=== PATIENT | female | born 1950 | race Caucasian/White ===

== ENCOUNTER → 2017-02-16 | Outpatient (CLI) | payer OTHER ==
[~2017-02-16] MED LIST: CLON0.5T3 PO; CLON1TAB3 PO; FLUO10CA48 PO; INSDGI SC; INSU100I SQ; LOSA100T33 PO; METF-384 PO; OXYC-57 PO; RXC5 PO
[2017-02-16 16:47] LABS: BASO % 0.6 %; BASO ABS # 0.05 K/uL (0-0.2); COMPLETE YES; EOS % 7.1 %; HEMATOCRIT 41.9 % (37-47); IG% 0.2 %; LYMPH % 34.3 %; LYMPH ABS # 3.03 K/uL (1.2-3.4); MEAN CELL VOLUME 94.6 fL (80-100); MEAN CORPUSCULAR HGB CONC 34.8 g/dl (32-36); MEAN PLATELET VOLUME 10.8 fL (7.4-10.4); NEUT % 50.8 %; PLATELET COUNT 223 K/uL (130-400); RED BLOOD COUNT 4.43 M/uL (4.2-5.4); WHITE BLOOD COUNT 8.83 K/uL (4.8-10.8)
[2017-02-16 16:52] LABS: URINE APPEARANCE CLEAR (CLEAR); URINE BILIRUBIN NEG (NEG); URINE COLOR YELLOW; URINE NITRITE NEG (NEG); URINE SPECIFIC GRAVITY 1.021 (1.000-1.030); UROBILINOGEN NEG (NEG)
[2017-02-16 16:57] LABS: MANUAL MICROSCOPIC REQUIRED? NO; REVIEW REQ? NO
--- NOTE | 2017-02-16 17:06 | DIAGNOSTIC IMAGING REPORT ---
CHEST 2 VIEWS ROUTINE CLINICAL HISTORY: LAB FIRST, CPL AFTER preoperative evaluation COMPARISON STUDY: No previous studies for comparison. FINDINGS: The bones soft tissues and hemidiaphragms are normal. The cardiomediastinal silhouette is normal. The lungs are clear. The pulmonary vasculature is normal. IMPRESSION: Negative chest. Electronically signed by: Justin Hopper M.D. 02/16/2017 5:05 PM Dictated Date/Time: 02/16/2017 5:05 PM
[2017-02-16 17:18] LABS: BLOOD UREA NITROGEN 11 mg/dl (7-18); BUN/CREATININE RATIO 12.4 (10-20); CALCIUM 9.3 mg/dl (8.5-10.1); CARBON DIOXIDE 29 mmol/L (21-32); CHLORIDE 105 mmol/L (98-107); CREATININE 0.89 mg/dl (0.60-1.20); GLUCOSE 163 mg/dl (70-99); SODIUM 143 mmol/L (136-145)
== END | disposition home or self-care (01) ==
LOC: C.CPL 16:08
PROVIDERS: ATTEND Orthopaedic Surgery Orthopaedic Surgery of the Spine
DX: M48.06 Spinal stenosis, lumbar region (principal); I49.3 Ventricular premature depolarization

== ENCOUNTER 2017-03-05 07:16 | Inpatient (IN) | payer OTHER ==
[2017-02-19 11:08] VITALS: BMI 38.0
[2017-03-05] VITALS (7 sets, daily range): BP systolic 80–126; BP diastolic 47–74; PULSE 80–104; TEMP 36.4–36.9; O2SAT 94–99; Ht 154.9 cm; Wt 90.9 kg
[~2017-03-05] VITALS: Ht 154.9 cm; Wt 90.9 kg
[~2017-03-05 07:16] MED LIST changes: +ATROPINE SULFATE 0.1 MG/ML 5ML SYR IV PRN; +BACITRACIN 50000 UNIT VIAL ONE; +BUPIVACAINE/EPINEPHRINE 0.25% 1:200,000 30 ML VIAL ONE; +CEFAZOLIN 2000 MG/60 ML D5W IV SCH; -CLON0.5T3 PO; +EpHEDrine SULFATE INJ 50 MG/ML AMP IV PRN; +FENTANYL CITRATE INJ 50 MCG/1 ML 2 ML VIAL IV PRN; +FENTANYL CITRATE INJ 50 MCG/1 ML 2 ML VIAL ONE; +HYDROmorphone INJ 1 MG/ML SYR IV PRN; +HYDROmorphone INJ 2 MG/ML SYR/VIAL ONE; +INSULIN ASPART 100 UNITS/ML 3 ML PEN SC SCH; +KETAMINE HCL INJ 50 MG/ML 10 ML VIAL ONE; +LACTATED RINGER'S 1000ML 1,000 ML IV SCH; +MIDAZOLAM HCL 1 MG/ML 2ML VIAL ONE; +ONDANSETRON INJ 2 MG/ML 2 ML VIAL IV PRN; -RXC5 PO; +SODIUM CHLORIDE 0.9% PF 50 ML VIAL ONE
--- NOTE | 2017-03-05 07:23 | History & Physical Bridge Note ---
H&P Re-Evaluation Bridge Note: I have examined the patient, reviewed the History & Physical and in the interval since the performance of the History & Physical I have noted the following changes of clinical significance: No changes noted
--- NOTE | 2017-03-05 07:24 | History and Physical ---
History & Physical Date Mar 05, 2017. Chief Complaint back and leg pain History of Present Illness The patient is a 66 year old female with complaints of Additional History Hepatic Disease: No Endocrine Disorder: No Kidney Disease: No Hypertension: No Heart Disease: No Bleeding Tendencies: No Infectious Diseases: No Allergies Coded Allergies: No Known Allergies (Unverified , 02/19/17) Home Medications Scheduled Fluoxetine (Prozac), 10 MG PO QAM Hctz/Losartan (Hyzaar 12.5MG/100MG), 1 TAB PO QAM Insulin Glargine (Lantus), 32 UNITS SC QAM Insulin Lispro (Human) (Humalog), 20 UNITS SQ AC Metformin Hcl (Glucophage), 1,000 MG PO BID Scheduled PRN Clonazepam (Klonopin), 0.5 TAB PO DAILY PRN for Anxiety Oxycodone/Acetaminophen 5MG/325MG (Percocet 5MG/325MG), 1 TABLET PO BID PRN for Pain Physical Examination Skin: warm/dry, no rash Eyes: normal inspection, EOMI, sclerae normal ENT: normal ENT inspection, pharynx normal Head: normocephalic, atraumatic Neck: supple, no adenopathy, trachea midline Respiratory/Chest: lungs clear, normal breath sounds, no respiratory distress Cardiovascular: regular rate, rhythm, no edema, no murmur Abdomen / GI: normal bowel sounds, non tender Back: normal inspection Extremities: normal inspection, normal range of motion Neurologic/Psych: no motor/sensory deficits, alert, normal reflexes, oriented x 3 Diagnosis lumbar stenosis Plan of Treatment decompression fusion L2-S1
[2017-03-05] MEDS ORDERED: ONDANSETRON INJ 2 MG/ML 2 ML VIAL ONE (08:47)
[2017-03-05] MEDS ORDERED: ROCURONIUM BROMIDE 10 MG/ML 5 ML VIAL ONE ×2 (08:47→10:32)
[2017-03-05] MEDS ORDERED: DEXAMETHASONE SOD INJ 4 MG/ML VIAL ONE (08:47)
[2017-03-05] MEDS ORDERED: EpHEDrine SULFATE 50MG/5ML SYR ONE (08:47)
[2017-03-05] MEDS ORDERED: LIDOCAINE HCL 2% 2 ML VIAL (20MG/ML) ONE (08:47)
[2017-03-05] MEDS ORDERED: PROPOFOL IV EMULSION 10 MG/ML 20 ML VIAL IV ONE (08:47)
[2017-03-05] MEDS ORDERED: NEOSTIGMINE METHYLSULFATE 5 MG/5 ML SYR ONE (08:47)
[2017-03-05] MEDS ORDERED: GLYCOPYRROLATE INJ 0.2 MG/ML VIAL ONE (08:47)
[2017-03-05] MEDS ORDERED: ACETAMINOPHEN 1000 MG/100 ML IV IV ONE (09:14)
[2017-03-05] MEDS ORDERED: ALBUMIN HUMAN 5% 12.5 GM/250 ML VIAL IV ONE (09:58)
[2017-03-05] MEDS ORDERED: LARYING-O-JET KIT (LTA) ONE ×2 (10:31)
[2017-03-05] MEDS ORDERED: FLOSEAL HEMOSTATIC MATRIX 10ML TOP ONE (11:26)
[2017-03-05] MEDS ORDERED: SODIUM CHLORIDE 0.9% 1000ML 1,000 ML IV SCH (11:34)
--- NOTE | 2017-03-05 11:34 | [facility] Post Operative Brief Note ---
Immediate Operative Summary Operative Date Mar 05, 2017. Pre-Operative Diagnosis Lumbar Stenosis Post-Operative Diagnosis Lumbar Stenosis Procedure(s) Performed L2-S1 Lumbar Laminectomy, Decompression; Pedicle Screw Fixation; Placement of Interbody Device L4-5,L5-S1; L2-S1 Posterolateral Fusion; Applicaton of Allograft; Bone Morphogentic Protein; Iliac [place] Fixation Surgeon Dr. Jt Unger Alarm Adjuster Surgeon(s) Noreen Raymond PA-C Estimated Blood Loss 800 cc Findings stenosis Specimens none per surgeon
[2017-03-05] MEDS ORDERED: SOD PHOSPHATE/SOD BIPHOSPHATE ENEMA 132 ML BTL PR PRN (11:45)
[2017-03-05] MEDS ORDERED: hydrOXYzine HCL 25 MG TAB PO PRN (11:45)
[2017-03-05] MEDS ORDERED: NALOXONE HCL 0.4 MG/1 ML VIAL/CARP IV PRN ×2 (11:45)
[2017-03-05] MEDS ORDERED: ALUMINUM/MAGNESIUM SUSP 30 ML UDC PO PRN (11:45)
[2017-03-05] MEDS ORDERED: ONDANSETRON INJ 2 MG/ML 2 ML VIAL IV PRN (11:45)
[2017-03-05] MEDS ORDERED: BISACODYL 10 MG SUPP PR PRN (11:45)
[2017-03-05] MEDS ORDERED: ACETAMINOPHEN IV 100 ML IV PRN (11:45)
[2017-03-05] MEDS ORDERED: MAGNESIUM HYDROXIDE SUSP 30 ML UDC PO PRN (11:45)
[2017-03-05] MEDS ORDERED: DO NOT ADMINISTER FLU VACCINE PRN ×3 (11:45)
[2017-03-05] MEDS ORDERED: DO NOT ADMINISTER PNEUMOCOCCAL VACCINE PRN ×2 (11:45)
[2017-03-05] MEDS ORDERED: PROMETHAZINE HCL INJ 12.5 MG in SODIUM CHLORIDE 0.9% 50ML 50 ML IV PRN (11:45)
[2017-03-05] MEDS ORDERED: FAMOTIDINE 20 MG TAB PO PRN (11:45)
[2017-03-05] MEDS ORDERED: METOCLOPRAMIDE HCL INJ 5 MG/ML 2 ML VIAL IV PRN (11:45)
[2017-03-05] MEDS ORDERED: CLONAZEPAM 1 MG TAB PO PRN (11:45)
[2017-03-05] MEDS ORDERED: LORAZEPAM INJ 0.5 MG in SYRINGE 0 ML IV PRN (11:45)
[2017-03-05] MEDS ORDERED: HYDROmorphone HCL 0.5MG/ML 50 ML CASSETTE ONE (11:48)
--- NOTE | 2017-03-05 11:53 | DIAGNOSTIC IMAGING REPORT ---
LUMBAR SPINE, INTRAOPERATIVE FLUOROSCOPY HISTORY: L2-S1 posterior decompression and fusion. FLUOROSCOPY TIME: 25 seconds. FINDINGS: Intraoperative fluoroscopy was provided for the lumbar spine. 5 fluoroscopic spot images were obtained. Posterior decompression and fusion from L2 through S1 with pedicle screws and rods. The hardware appears intact. There are bilateral SI bolts. IMPRESSION: Fluoroscopy provided for a L2-S1 posterior decompression and fusion. Electronically signed by: Mani Worthy M.D. 03/05/2017 11:52 AM Dictated Date/Time: 03/05/2017 11:51 AM
[2017-03-05] MEDS ORDERED: PHARMACY GLYCEMIC MGMT CONSULT PRN (12:03)
[2017-03-05] MEDS ORDERED: NURSING VERBAL MED ORDER ONE ×2 (12:08→12:38)
[2017-03-05] MEDS ORDERED: NovoLIN-R INSULIN PER UNIT CHARGE ONE ×3 (12:08→13:15)
--- NOTE | 2017-03-05 13:58 | Anesthesiology Progress Note ---
Anesthesia Post Op Note Date & Time Mar 05, 2017 at 13:58 Vital Signs Pain Intensity: 4 Vital Signs Past 12 Hours Date Time Temp Pulse Resp B/P (MAP) Pulse Ox O2 Delivery O2 Flow Rate FiO2 03/05/17 13:40 36.3 90 15 106/51 100 Nasal Cannula 4 03/05/17 13:30 75 15 123/58 100 Nasal Cannula 4 03/05/17 13:20 70 16 107/51 97 Nasal Cannula 4 03/05/17 13:10 72 16 112/63 99 Nasal Cannula 4 03/05/17 13:00 78 14 109/49 99 Nasal Cannula 4 03/05/17 12:50 75 14 120/55 99 Nasal Cannula 4 03/05/17 12:40 74 14 118/52 98 Nasal Cannula 4 03/05/17 12:30 70 14 123/43 99 Nasal Cannula 4 03/05/17 12:20 70 14 115/47 98 Nasal Cannula 4 03/05/17 12:10 70 14 96/47 100 Nasal Cannula 4 03/05/17 12:00 65 14 100/45 100 Oxymask 10 03/05/17 11:53 72 14 122/59 99 Oxymask 10 03/05/17 11:44 36.8 72 14 117/60 99 Oxymask 10 Manual 03/05/17 07:42 36.5 92 20 126/69 96 Room Air Notes Mental Status: alert / awake / arousable, participated in evaluation Pt Amnestic to Procedure: Yes Nausea / Vomiting: adequately controlled Pain: adequately controlled Airway Patency, RR, SpO2: stable & adequate BP & HR: stable & adequate Hydration State: stable & adequate Anesthetic Complications: no major complications apparent
[2017-03-05] MEDS: HYDROmorphone HCL 0.5MG/ML 50 ML CASSETTE IV PRN ×3 (14:14→23:03)
[2017-03-05] MEDS: SODIUM CHLORIDE 0.9% 1000ML 1,000 ML IV SCH ×3 (15:20→22:32)
[2017-03-05] MEDS ORDERED: GLUCOSE 10 TABS/TUBE PO PRN (16:00)
[2017-03-05] MEDS ORDERED: GLUCOSE 40% GEL 15 GM TUBE PO PRN (16:00)
[2017-03-05] MEDS ORDERED: DEXTROSE 50% 50 ML SYR IV PRN (16:00)
[2017-03-05] MEDS ORDERED: GLUCAGON FOR INJ 1 MG VIAL SQ PRN (16:00)
[2017-03-05] MEDS: CEFAZOLIN IV 2,000 MG in DEXTROSE 5% 50ML 50 ML IV SCH (16:28)
[2017-03-05] MEDS: DEXAMETHASONE INJ 6 MG in SYRINGE 0 ML IV SCH (16:29)
[2017-03-05] MEDS: INSULIN GLARGINE SOLOSTAR 100 UNITS/ML 3 ML PEN SC SCH (17:06)
--- NOTE | 2017-03-05 17:29 | OPERATIVE REPORT ---
DATE OF OPERATION: 03/05/2017 PREOPERATIVE DIAGNOSIS: Spinal stenosis. POSTOPERATIVE DIAGNOSIS: Same. PROCEDURES PERFORMED: 1. Lumbar decompression, medial facetectomy and foraminotomy, L2-L3, L3-L4, L4-L5, and L5-S1. 2. Posterior spinal fusion, L2-L3, L3-L4, L4-L5, and L5-S1. 3. Bilateral SI joint fusions. 4. Placement of posterior segmental instrumentation using Orthros rods and screws as well as Medicrea bilateral iliac bolts. 5. Interbody fusion, L4-L5 and L5-S1. 6. Placement of PEEK cage 12 x 22 at L4-L5 and 11 x 22 at L5-S1. 7. Placement of locally harvested morcellized autograft in the posterior gutters. 8. Placement of Infuse collagen sponge combined with Mastergraft in the posterior gutters and Beatrice bone graft in the interbody spacers. SURGEON: Dr. Henry Unger. RAFTER CUTTING MACHINE OPERATOR: Noreen Raymond PA-C. Due to the complex nature of the procedure, the entire surgery was performed with the senior sales assistant of Noreen Raymond PA-C. The stores assistant, under direct supervision, was involved in the actual performance of all aspects of the surgical procedure including hemostasis, tissue retraction and incision, instrument management, patient positioning, and wound closure. ANESTHESIA: General. DISPOSITION: The patient awakened and taken to PACU in stable condition. HISTORY OF PATIENT'S PROBLEMS: This is a 66-year-old female that presents with the above-mentioned diagnosis. After failing an extensive course of nonoperative care, she elected to undergo the above-mentioned procedures. Risks, benefits, pros, cons, and alternatives were outlined in detail preoperatively. DESCRIPTION OF PROCEDURE: The patient was met with preoperatively, case discussed and all questions were addressed. At that point, the patient was taken back to operative suite and after undergoing successful general intubation by the department of anesthesia, she was placed in prone position on Scott table on top of the Berto frame. All bony prominences were well padded and the eyes were inspected to ensure there was no external pressure placed upon them. At this point, the lumbar spine was prepped and draped in normal sterile fashion. Sharp dissection with the assistance of Bovie cautery was performed down to and exposing the lamina and transverse processes of L2, L3, L4, L5 and sacral ala bilaterally. From a caudal to cephalad fashion, complete laminectomy of L5, L4, L3 and L2 was performed addressing severe lateral recess stenosis and foraminal stenosis. It required multilevel facetectomies. After this was complete, pedicle screws were then placed in L2, L3, L4, L5 and S1 levels as well as bilateral iliac bolts with the assistance of fluoroscopy and through a transforaminal approach on the left, a complete diskectomy of L5-S1 was performed, endplates curetted to subcortical bleeding bone and an 11 x 22 mm PEEK cage filled with Beatrice bone grafting tapped into position. I then proceeded to L4-L5 and again through a transforaminal approach on the left, a complete diskectomy was performed, endplates curetted to subcortical bleeding bone and a 12 x 22 mm PEEK cage filled with Beatrice bone grafting tapped into position. Appropriate size rods were then placed, locked into final position bilaterally and transverse processes of L2, L3, L4, L5, the sacral ala and the bilateral SI joints were burred to subcortical bleeding bone. Infuse collagen sponge combined with Mastergraft and locally harvested morcellized autograft was packed in the SI joints and then along the lateral gutters. Crosslink was locked into position. A 15 round DONOVAN drain inserted and incision was closed with 1-0 Vicryl in the fascia, 2-0 Vicryl subcutaneously, and 4-0 Monocryl for final skin closure. Steri-Strips and sterile dressing were placed. The patient was awakened and taken to PACU in stable condition. I attest to the content of the Intraoperative Record and any orders documented therein. Any exception s are noted below.
[2017-03-05] MEDS: INSULIN ASPART 100 UNITS/ML 3 ML PEN SC SCH ×2 (19:22→21:02)
[2017-03-05] MEDS: DOCUSATE SODIUM/SENNA 50/8.6MG TAB PO SCH (20:57)
[2017-03-06] MEDS: INSULIN ASPART 100 UNITS/ML 3 ML PEN SC SCH ×6 (00:12→21:07)
[2017-03-06] MEDS: DEXAMETHASONE INJ 6 MG in SYRINGE 0 ML IV SCH ×2 (00:23→09:22)
[2017-03-06] MEDS: CEFAZOLIN IV 2,000 MG in DEXTROSE 5% 50ML 50 ML IV SCH (00:23)
[2017-03-06 04:05] VITALS: BP 114/67; PULSE 100; TEMP 36.7; O2SAT 91
[2017-03-06] MEDS ORDERED: DC PCA ONE (06:00)
[2017-03-06] MEDS: ACETAMINOPHEN 500 MG TAB PO PRN (06:11)
[2017-03-06] MEDS ORDERED: NURSING VERBAL MED ORDER ONE (06:15)
[2017-03-06 06:54] LABS: COMPLETE YES; HEMATOCRIT 29.5 % (37-47); IG% 0.4 %; LYMPH % 5.8 %; LYMPH ABS # 0.64 K/uL (1.2-3.4); MEAN CELL VOLUME 95.2 fL (80-100); MEAN CORPUSCULAR HEMOGLOBIN 32.3 pg (25-34); MEAN CORPUSCULAR HGB CONC 33.9 g/dl (32-36); MEAN PLATELET VOLUME 10.6 fL (7.4-10.4); MONO % 3.2 %; NEUT % 90.6 %; PLATELET COUNT 183 K/uL (130-400); WHITE BLOOD COUNT 11.07 K/uL (4.8-10.8)
[2017-03-06 07:26] LABS: BUN/CREATININE RATIO 13.8 (10-20); CALCIUM 8.5 mg/dl (8.5-10.1); CREATININE 0.9 mg/dl (0.60-1.20)
--- NOTE | 2017-03-06 07:29 | Pharmacy Progress Note ---
Glycemic Control Intl Consult Date of Service Mar 06, 2017. Scope Glycemic Pharmacist consulted by Dr Unger on 03/05/17 for glycemic control and to write orders per [facility] inpatient glycemic control protocol Objective Weight (Kilograms): 90.910 Accuchecks BSG (last 24hrs): Test 03/05/17 07:50 03/05/17 12:05 03/05/17 12:33 03/05/17 13:08 Bedside Glucose 188 mg/dl (70-90) 294 mg/dl (70-90) 281 mg/dl (70-90) 281 mg/dl (70-90) Test 03/05/17 13:39 03/05/17 16:59 03/05/17 20:31 03/06/17 00:01 Bedside Glucose 258 mg/dl (70-90) 239 mg/dl (70-90) 270 mg/dl (70-90) 173 mg/dl (70-90) Test 03/06/17 04:11 03/06/17 06:25 Bedside Glucose 179 mg/dl (70-90) Laboratory Data (last 24hrs) Test 03/06/17 06:25 White Blood Count 11.07 K/uL Red Blood Count 3.10 M/uL Hemoglobin 10.0 g/dL Hematocrit 29.5 % Mean Corpuscular Volume 95.2 fL Mean Corpuscular Hemoglobin 32.3 pg Mean Corpuscular Hemoglobin Concent 33.9 g/dl Platelet Count 183 K/uL Mean Platelet Volume 10.6 fL Neutrophils (%) (Auto) 90.6 % Lymphocytes (%) (Auto) 5.8 % Monocytes (%) (Auto) 3.2 % Eosinophils (%) (Auto) 0.0 % Basophils (%) (Auto) 0.0 % Neutrophils # (Auto) 10.04 K/uL Lymphocytes # (Auto) 0.64 K/uL Monocytes # (Auto) 0.35 K/uL Eosinophils # (Auto) 0.00 K/uL Basophils # (Auto) 0.00 K/uL HbA1c Test 03/06/17 06:25 Recent Pertinent Medications Outpatient Anti-diabetic Regimen: * Lantus 32 units sq qam, Lispro 20 units with meals, metformin 1g PO BID * A1c = 8.1 % 02/12/16 Risk Factors for Insulin Resistance: * Steroids: Dexamethasone 4 mg in OR, then 6 mg IV every 8 hours * Infection: Ancef sugar-op * Recent Surgery: s/p lumbar laminectomy, decompression * Diet: T2DM Assessment & Plan ASSESSMENT: * 66 yr old T2DM female s/p lumbar laminectomy with decompression. * Patient is on high dose IV steroids for 24 hours - anticipate steroid induced hyperglycemia. * ADA & AACE recommend a goal blood sugar range 140-180 mg/dl for the majority of critically ill & non-critically ill patients. However, more stringent targets may be selected in individual cases. Will utilize more stringent goal of 110-140mg/dl based on patient age & comorbidities. Additionally, tighter glycemic control is warranted to facilitate wound/infection healing. * Will continue patient on basal/bolus regimen * Dose Lantus per scale (stressed home dose of 92 units per day) * Aggressive bolus insulin parameters will be used since steroids have most profound effect on postprandial BSG * Regimen will require prompt reduction once steroid effect has worn off PLAN FOR INPATIENT GLYCEMIC CONTROL: * Holding outpatient oral diabetes medications * Basal insulin with LANTUS daily per scale * 35 units for BSG less than 120 mg/dL * 40 units for BSG 120 - 180 mg/dL * 45 units for BSG greater than 180 mg/dL * Correctional/Prandial Insulin with NOVOLOG per scale ACHS * Goal Range: Low 110 mg/dL - High 140 mg/dL * Correction Factor: 12 mg/dL/unit * Nutritional / Prandial insulin per carb ratio of 1 unit per 4 grams CHO consumed * Add checks with coverage at 00 and 04 * Please note that the plan above was derived based on current level of insulin resistance and hospital stress. These recommendations are appropriate for inpatient admission only. Plan of care upon discharge will need to be reassessed to avoid potential outpatient hypo/hyperglycemia. Thank you.
[2017-03-06 07:45] VITALS: BP 147/81; PULSE 107; TEMP 36.8; O2SAT 97
--- NOTE | 2017-03-06 07:59 | Clinical Documentation Query ---
LAKIA Harris : CLINICAL DOCUMENTATION QUERIES QUERY 1 OF 2 Preoperative hemoglobin and hematocrit are unknown to this reader. Postoperative day #1, values are 10.0 g/dl and 29.5%. EBL for the procedure was 800 ml's. with subsequently documented losses to date totaling an additional 560 ml's. She is being monitored with serial hematology and I/O to include DONOVAN drain outputs. Please clarify as clinically appropriate. Thank you. In your clinical opinion is this patient being managed for: ( ) Acute blood loss anemia ( ) Other explanation of clinical findings (Please Explain) ( ) Unable to determine (Please Define) ( ) Need to Discuss ( ) Not Agree The medical record reflects the following clinical findings, treatment, and risk factors. Clinical Indicators: As above Treatment: She is being monitored with serial hematology and I/O to include DONOVAN drain outputs Risk Factors: Acute intraoperative and postoperative blood losses. QUERY 2 OF 2 H&P states no past medical history. However, home medications include: Fluoxetine (Prozac), 10 MG PO QAM Hctz/Losartan (Hyzaar 12.5MG/100MG), 1 TAB PO QAM Insulin Glargine (Lantus), 32 UNITS SC QAM Insulin Lispro (Human) (Humalog), 20 UNITS SQ AC Metformin Hcl (Glucophage), 1,000 MG PO BID In your clinical opinion is this patient being managed for: ( ) Depression, hypertension, and/or diabetes mellitus type 2 ( ) Other explanation of clinical findings (Please Explain) ( ) Unable to determine (Please Define) ( ) Need to Discuss ( ) Not Agree The medical record reflects the following clinical findings, treatment, and risk factors. Clinical Indicators: As above Treatment: Home medications Risk Factors: Age, obesity Please clarify and document your clinical opinion in the progress notes and discharge summary. Terms such as "probable", "suspected", "likely", "questionable", "possible", or "still to be ruled out" are acceptable. IF IN AGREEMENT, YOU MUST DOCUMENT ABOVE DIAGNOSTIC STATEMENT IN DAILY PROGRESS NOTES AND DISCHARGE SUMMARY. This document is not part of the patient's record. Thank You, Clayton Ro, RN [phone]
[2017-03-06 08:30] LABS: ESTIMATED AVERAGE GLUCOSE 169 mg/dl; HA1C FLAG Normal (Normal)
--- NOTE | 2017-03-06 08:50 | Anesthesiology Progress Note ---
Anesthesia Post Op Note Date & Time Mar 06, 2017 at 08:49 Vital Signs Pain Intensity: 5.0 Vital Signs Past 12 Hours Date Time Temp Pulse Resp B/P (MAP) Pulse Ox O2 Delivery O2 Flow Rate FiO2 03/06/17 07:45 36.8 107 22 147/81 (103) 97 Room Air 03/06/17 04:05 36.7 100 18 114/67 (83) 91 Room Air 03/06/17 00:15 Room Air 03/05/17 22:56 36.7 104 18 99/61 (74) 94 Room Air Notes Mental Status: alert / awake / arousable, participated in evaluation Pt Amnestic to Procedure: Yes Nausea / Vomiting: adequately controlled Pain: adequately controlled Airway Patency, RR, SpO2: stable & adequate BP & HR: stable & adequate Hydration State: stable & adequate Anesthetic Complications: no major complications apparent
[2017-03-06] MEDS: LOSARTAN POTASSIUM 50 MG TAB PO SCH (09:23)
[2017-03-06] MEDS: HYDROCHLOROTHIAZIDE 25 MG TAB PO SCH (09:23)
[2017-03-06] MEDS: FLUOXETINE HCL 10 MG CAP PO SCH (09:24)
[2017-03-06] MEDS: INSULIN GLARGINE SOLOSTAR 100 UNITS/ML 3 ML PEN SC SCH (09:33)
[2017-03-06] MEDS: OXYCODONE HCL IR 5 MG TAB (IMMEDIATE RELEASE) PO PRN ×4 (09:39→21:44)
--- NOTE | 2017-03-06 10:50 | Pharmacy Progress Note ---
Glycemic Control: Progress Nt Date of Service Mar 06, 2017. Scope Glycemic Pharmacist consulted by Dr Unger on 03/05/17 for glycemic control and to write orders per [facility] inpatient glycemic control protocol. Objective Accuchecks BSG (last 24hrs): Test 03/05/17 12:05 03/05/17 12:33 03/05/17 13:08 03/05/17 13:39 Bedside Glucose 294 mg/dl (70-90) 281 mg/dl (70-90) 281 mg/dl (70-90) 258 mg/dl (70-90) Test 03/05/17 16:59 03/05/17 20:31 03/06/17 00:01 03/06/17 04:11 Bedside Glucose 239 mg/dl (70-90) 270 mg/dl (70-90) 173 mg/dl (70-90) 179 mg/dl (70-90) Test 03/06/17 06:25 03/06/17 08:17 Random Glucose 165 mg/dl (70-99) Bedside Glucose 194 mg/dl (70-90) Laboratory Data (last 24hrs) Test 03/06/17 06:25 Anion Gap 8.0 mmol/L BUN/Creatinine Ratio 13.8 Blood Urea Nitrogen 12 mg/dl Creatinine 0.90 mg/dl Hemoglobin A1c 7.5 % Potassium Level 4.0 mmol/L Sodium Level 143 mmol/L White Blood Count 11.07 K/uL Red Blood Count 3.10 M/uL Hemoglobin 10.0 g/dL Hematocrit 29.5 % Mean Corpuscular Volume 95.2 fL Mean Corpuscular Hemoglobin 32.3 pg Mean Corpuscular Hemoglobin Concent 33.9 g/dl Platelet Count 183 K/uL Mean Platelet Volume 10.6 fL Neutrophils (%) (Auto) 90.6 % Lymphocytes (%) (Auto) 5.8 % Monocytes (%) (Auto) 3.2 % Eosinophils (%) (Auto) 0.0 % Basophils (%) (Auto) 0.0 % Neutrophils # (Auto) 10.04 K/uL Lymphocytes # (Auto) 0.64 K/uL Monocytes # (Auto) 0.35 K/uL Eosinophils # (Auto) 0.00 K/uL Basophils # (Auto) 0.00 K/uL HbA1c: Test 03/06/17 06:25 Hemoglobin A1c 7.5 % (4.5-5.6) H Recent Pertinent Medications Outpatient Anti-diabetic Regimen: * Lantus 32 units sq qam, Lispro 20 units with meals, metformin 1g PO BID Risk Factors for Insulin Resistance: * Steroids: Dexamethasone 4 mg in OR, then 6 mg IV every 8 hours - last dose @ 0900 * Recent Surgery: s/p lumbar laminectomy, decompression * Diet: T2DM Assessment & Plan ASSESSMENT: * 66 yr old T2DM female s/p lumbar laminectomy with decompression. * Patient is on high dose IV steroids for 24 hours - anticipate steroid induced hyperglycemia. * ADA & AACE recommend a goal blood sugar range 140-180 mg/dl for the majority of critically ill & non-critically ill patients. However, more stringent targets may be selected in individual cases. Will utilize more stringent goal of 110-140mg/dl based on patient age & comorbidities. Additionally, tighter glycemic control is warranted to facilitate wound/infection healing. * Will continue patient on basal/bolus regimen * Dose Lantus per scale (stressed home dose of 92 units per day) * Aggressive bolus insulin parameters will be used since steroids have most profound effect on postprandial BSG * Regimen will require prompt reduction once steroid effect has worn off 03/06/17 * Steroid induced hyperglycemia in the setting of recent surgery * BSG ranged from 173 to 281 mg/dL over the past 24 hours. * Patient received 74 units of insulin since surgery * 45 units basal and 29 units prandial * Large dose of Lantus was given on 03/06 at dinner since patient was basal deficient due to holding am dose * Lantus dose of 45 units this am is equivalent to the basal component of her total home dose (92 units -> split 50/50 -> 23 u BID basal), thus I anticipate her to need additional Lantus this evening * Basal and bolus insulin will both require reduction as steroid effect weans off. Last dose of dexamethasone was administered at 9 am. * Decrease Lantus this evening - dose per scale based on BSG * Loosen bolus parameters after dinner since lunch BSG is > 200 mg/dL. Will loosen to 15/4 (total home dose + stress 2) PLAN FOR INPATIENT GLYCEMIC CONTROL: * Holding outpatient oral diabetes medications * Basal insulin with LANTUS daily per scale BID * 0 units for BSG less than 100 mg/dL * 15 units for BSG 100 - 180 mg/dL * 25 units for BSG greater than 180 mg/dL * Correctional/Prandial Insulin with NOVOLOG per scale ACHS * Goal Range: Low 110 mg/dL - High 140 mg/dL * Loosen Correction Factor: 15 mg/dL/unit - starting at 2100 * Loosen Nutritional / Prandial insulin per carb ratio of 1 unit per 4 grams CHO consumed - starting at 2100 * Continue checks with coverage at 00 and 04 * Please note that the plan above was derived based on current level of insulin resistance and hospital stress. These recommendations are appropriate for inpatient admission only. Plan of care upon discharge will need to be reassessed to avoid potential outpatient hypo/hyperglycemia. Thank you.
[2017-03-06] MEDS ORDERED: RXC5 PO (11:23)
--- NOTE | 2017-03-06 11:24 | Discharge Instructions ---
Discharge Instructions Date of Service Mar 06, 2017. Admission Reason for Admission: Lumbar Spinal Stenosis Discharge Discharge Diagnosis / Problem: lumbar stenosis Discharge Goals Goal(s): Improve function Activity Recommendations Activity Limitations: per Instructions/Follow-up section . Instructions / Follow-Up Instructions / Follow-Up ACTIVITY RECOMMENDATIONS: SELF CARE INSTRUCTIONS AFTER THORACIC/LUMBAR FUSIONS 1. You may walk to your tolerance. It is good exercise for your legs and back. Expect some back and intermittent leg aches and pains. 2. You may perform "counter-top" level activities (make a sandwich, felipe with a project, etc.). 3. No bending or lifting of more than 10 pounds or back twisting of any nature (roll like a log when turning in bed). 4. You may ride in a car for 20-30 minutes at a time. No driving until after your first visit with your doctor. 5. Frequent changes of position and restricting sitting to 30 minutes at a time will help limit the amount of back spasms and stiffness you may experience. 6. You may discontinue the use of ambulatory aids (cane, crutches, etc.) once your strength and confidence allow. 7. You may biomedical engineering supervisor the shower and let water strike your incision when you arrive home at least once daily. Do not take a tub bath, sit in a hot tub or go into a swimming pool until after your first recheck in the office. SPECIAL CARE INSTRUCTIONS: VERY IMPORTANT TO READ AND REVIEW A. Your surgical incision has been closed with a cosmetic suture under the skin that will dissolve in about 6 weeks. In 14 days, you can use a pair of clean scissors and cut the suture that is left outside of the skin at the ends of your incision. 1. The small skin tapes can be removed 7 days after surgery if they have not fallen off by that point. 2. You may keep the wound open to air as much as possible to promote healing after post-op day number 5 unless told otherwise by your doctor. 3. If you think the wound looks like it is becoming infected (redness or worsening drainage) and/or you are experiencing fever, chill or worsening back pain and muscle spasms, contact the office so that we may evaluate you as soon as possible. B. Complications are uncommon, but please contact us if you have any signs or symptoms of: 1. wound infection (fever higher than 102.5 degrees F, redness, separation of wound, drainage, or increasing pain from the incision) 2. blood clots in legs (pain, swelling, redness and warmth in legs) 3. urinary tract infection (fever higher than 102.5 degrees F, burning upon urination or increased frequency of urination) 4. nerve problems (inability to walk on your toes or heels, numbness, loss of bowel or bladder control) 5. any other symptoms that concern you C. Please call the office at if you have any concerns or questions about your operation or recovery. D. No smoking! Smoking drastically decreases the chance of a solid fusion. E. Do not take any anti-inflammatory medications (Indocin, Advil, Motrin, Aspirin, Naprosyn, etc.) as these may inhibit the chance of a solid fusion. Tylenol is okay to take for pain. MANAGING PAIN AFTER SPINAL SURGERY 1. Narcotic medication is intended for short-term use and will be provided for surgical pain. Surgical pain usually lasts for a period of 4-6 weeks. Narcotic medication includes Percocet, Vicodin, Darvocet, Tylenol #3 or Lortab. 2. Longer-term pain is more appropriately treated with non-narcotic medication such as Tylenol ES. 3. Muscle spasm is not appropriately treated with narcotics. Muscle relaxers such as Soma, Flexeril or Skelaxin can be used along with Tylenol ES. 4. Remember that we all live with some "aches and pains". This is not unusual or uncommon after an injury or as we get older. a. Back pain is expected and may include muscle spasms for 4 to 6 weeks after surgery. The pain should gradually improve. If the pain worsens for no apparent reason, please contact the office. b. Intermittent leg pain may also be experienced and should not be concerned about unless it worsens for no apparent reason. If so, please contact the office. 5. We will provide appropriate medication within the normal guidelines of their prescribed use. We will also be very cautious and aware of potential abuse and extended duration of patients' medication needs. a. Pain medications are for your comfort and to assist with sleep and rest so that the tissue can heal. They are not provided in order to return to normal activity and should not be used through the day. To do so or worsening pain at night can result from ongoing tissue damage and development of tolerance to the prescribed medicine. 6. Please allow 2-3 days to process refills. Prescriptions will not be mailed but must be picked up at the office. FOLLOW UP VISIT: Keep your scheduled follow-up appointment. Any questions, please call the office at . Current Hospital Diet Patient's current hospital diet: Diabetes Type 2 Diet Discharge Diet Recommended Diet: Regular Diet Procedures Procedures Performed: L2-S1 Lumbar Laminectomy, Decompression; Pedicle Screw Fixation; Placement of Interbody Device L4-5,L5-S1; L2-S1 Posterolateral Fusion; Applicaton of Allograft; Bone Morphogentic Protein; Iliac [place] Fixation Pending Studies Studies pending at discharge: no Laboratory Results Hemoglobin A1c Test 03/06/17 06:25 Range/Units Estimated Average Glucose 169 mg/dl Hemoglobin A1c 7.5 H 4.5-5.6 % Medical Emergencies . Who to Call and When: Medical Emergencies: If at any time you feel your situation is an emergency, please call 911 immediately. . Non-Emergent Contact Non-Emergency issues call your: Primary Care Provider . "Provider Documentation" section prepared by Henry Unger. . VTE Core Measure Inpt VTE Proph given/why not?: Cinda Valenzuela, SCD's
[2017-03-06 11:34] VITALS: BP 123/72; PULSE 98; TEMP 37.1; O2SAT 92
--- NOTE | 2017-03-06 11:56 | PROGRESS NOTE ---
DATE: 03/06/2017 SUBJECTIVE: Postop day 1. Back pain is controlled. Leg pain, improved. Vital signs stable. T max 37.1. DONOVAN drained 180 mL over the last shift. Hematocrit this a.m. is 29.5. OBJECTIVE: On exam, she has good strength to testing, is sitting up in bed, appears comfortable. ASSESSMENT: Status post lumbar decompression and fusion. PLAN: At this time, We will continue physical therapy, advance her bowel regimen and anticipate discharge to [facility] in the next few days.
[2017-03-06] MEDS: HYDROmorphone INJ 1 MG/ML SYR IV PRN (12:02)
[2017-03-06 12:45] VITALS: BP 150/78; PULSE 96; O2SAT 96
[2017-03-06 15:27] VITALS: BP 116/71; PULSE 81; TEMP 37.1; O2SAT 97
[2017-03-06] MEDS ORDERED: INSULIN GLARGINE SOLOSTAR 100 UNITS/ML 3 ML PEN SC SCH (21:00)
[2017-03-06] MEDS: DOCUSATE SODIUM/SENNA 50/8.6MG TAB PO SCH (21:44)
[2017-03-06 22:52] VITALS: BP 123/70; PULSE 90; TEMP 36.8; O2SAT 92
[2017-03-07] MEDS: HYDROmorphone INJ 1 MG/ML SYR IV PRN ×2 (02:43→03:03)
[2017-03-07] MEDS: LORAZEPAM 0.5 MG TAB PO PRN ×2 (02:54→04:04)
[2017-03-07] MEDS: INSULIN ASPART 100 UNITS/ML 3 ML PEN SC SCH ×6 (04:00→21:33)
[2017-03-07] MEDS: POLYETHYLENE (MIRALAX) 17 GM PACK PO SCH ×3 (05:46→18:00)
[2017-03-07 07:59] VITALS: BP 116/73; PULSE 71; TEMP 36.4; O2SAT 97
[2017-03-07] MEDS: HYDROCHLOROTHIAZIDE 25 MG TAB PO SCH (09:28)
[2017-03-07] MEDS: FLUOXETINE HCL 10 MG CAP PO SCH (09:28)
[2017-03-07] MEDS: LOSARTAN POTASSIUM 50 MG TAB PO SCH (09:29)
[2017-03-07] MEDS: INSULIN GLARGINE SOLOSTAR 100 UNITS/ML 3 ML PEN SC SCH (09:31)
[2017-03-07] MEDS: OXYCODONE HCL IR 5 MG TAB (IMMEDIATE RELEASE) PO PRN ×2 (09:37→23:06)
--- NOTE | 2017-03-07 10:41 | Pharmacy Progress Note ---
Glycemic Control Progress Note Date of Service Mar 07, 2017. Scope Glycemic Pharmacist consulted for glycemic control to write orders per [facility] inpatient glycemic control protocol. Objective Accuchecks BSG (last 24hrs): Test 03/06/17 11:59 03/06/17 16:57 03/06/17 20:33 03/06/17 23:52 Bedside Glucose 239 mg/dl (70-90) 163 mg/dl (70-90) 157 mg/dl (70-90) 97 mg/dl (70-90) Test 03/07/17 03:58 03/07/17 08:02 Bedside Glucose 114 mg/dl (70-90) 137 mg/dl (70-90) HbA1c: Test 03/06/17 06:25 Hemoglobin A1c 7.5 % (4.5-5.6) H Recent Pertinent Medications The patient is currently receiving: * Basal insulin: Lantus 45 units every morning and 15 units every evening * Correctional Insulin: Novolog Correction per scale ACHS Goal Range: Low 110 mg/dL - High 140 mg/dL Correction Factor: 15 mg/dL/unit * Prandial insulin: Per carb ratio of 1 unit per 4 grams CHO consumed * Oral Agents: On hold for admission Outpatient Anti-Diabetic Meds Oral Agents Basal Insulin Bolus Insulin Assessment & Plan ASSESSMENT: * See progress note from 03/06 for more background info, in short: * Pt receiving SQ basal bolus insulin regimen for hyperglycemia secondary to baseline DM (outpatient regimen on hold), recent surgery, steroids * Patient is currently receiving an average of 127 units of insulin per day * 60 units of basal insulin * 67 units of prandial/correctional insulin * BSGs ranging 97 - 239 mg/dl over the past 24hrs * Changes needed to insulin regimen: * AM Fasting BSG = 137 mg/dl. This is in slightly goal range for patient based on inpatient targets and co-morbidities. Steroid hyperglycemia effects should be diminishing at this point. Will resume outpatient dosing. * Post-prandial BSGs are in range but expect them to trend down with aggressive parameters and d/c dxm. Will empirically loosen CF/CR * Additional notes / comments: POD#2 s/p lumbar spinal surgery. Outpatient insulin doses were stressed/increased for steroid induced hyperglycemia, now resolved. Will resume outpatient regimen at this point and restart oral agents. PLAN FOR INPATIENT GLYCEMIC CONTROL: * Oral Agents * Start metformin 1,000mg PO BIDM * Basal insulin * Lantus 32 units SQ daily in AM * Bolus insulin * NovoLog per scale ACHS or Q6hrs while NPO * Goal Range: Low 110 mg/dL - High 140 mg/dL * Correction Factor: 25 mg/dL/unit * Nutritional / Prandial insulin per carb ratio of 1 unit per 8 grams CHO consumed * Please note that the plan above was derived based on current level of insulin resistance and hospital stress. These recommendations are appropriate for inpatient admission only. Plan of care upon discharge will need to be reassessed to avoid potential outpatient hypo/hyperglycemia. Thank you.
[2017-03-07 14:44] VITALS: BP 138/70; PULSE 89; TEMP 36.9; O2SAT 95
[2017-03-07] MEDS: METFORMIN HCL 500 MG TAB PO SCH (18:01)
[2017-03-07] MEDS: DOCUSATE SODIUM/SENNA 50/8.6MG TAB PO SCH (20:25)
[2017-03-07 22:46] VITALS: BP 110/62; PULSE 92; TEMP 36.8; O2SAT 97
[2017-03-08] MEDS: ACETAMINOPHEN 500 MG TAB PO PRN ×2 (02:01→17:34)
[2017-03-08] MEDS: OXYCODONE HCL IR 5 MG TAB (IMMEDIATE RELEASE) PO PRN ×4 (05:40→22:41)
[2017-03-08] MEDS: POLYETHYLENE (MIRALAX) 17 GM PACK PO SCH ×4 (05:41→18:44)
[2017-03-08 07:10] VITALS: BP 108/68; PULSE 84; TEMP 36.3; O2SAT 95
[2017-03-08] MEDS: LOSARTAN POTASSIUM 50 MG TAB PO SCH (09:14)
[2017-03-08] MEDS: FLUOXETINE HCL 10 MG CAP PO SCH (09:14)
[2017-03-08] MEDS: METFORMIN HCL 500 MG TAB PO SCH ×2 (09:16→18:44)
[2017-03-08] MEDS: INSULIN ASPART 100 UNITS/ML 3 ML PEN SC SCH ×4 (09:19→22:09)
[2017-03-08] MEDS: INSULIN GLARGINE SOLOSTAR 100 UNITS/ML 3 ML PEN SC SCH (09:19)
[2017-03-08] MEDS: HYDROCHLOROTHIAZIDE 25 MG TAB PO SCH (09:46)
--- NOTE | 2017-03-08 11:30 | Orthopedic Progress Note ---
Orthopedic Progress Note Date of Service Mar 08, 2017. Subjective Post OP Day: 3 Reports: feeling well, pain controlled w PO medications, Denies: complaints, chest pain, SOB, nausea / vomiting, light headedness, calf pain, using VP COMPLIANCE Objective N/V intact, dressing C/D/I, A&O x3, hemovac drainage Date Time Temp Pulse Resp B/P (MAP) Pulse Ox O2 Delivery O2 Flow Rate FiO2 03/08/17 07:25 Room Air 03/08/17 07:10 36.3 84 16 108/68 (81) 95 Room Air 03/08/17 00:00 Room Air 03/07/17 22:46 36.8 92 20 110/62 (78) 97 Room Air 03/07/17 16:22 Room Air 03/07/17 14:44 36.9 89 20 138/70 (92) 95 Room Air Assessment & Plan Assessment: still has elevated drain output and activity related spasm, will hold d/c until thursday
[2017-03-08 14:48] VITALS: BP 101/56; PULSE 105; TEMP 36.9; O2SAT 97
[2017-03-08] MEDS: DOCUSATE SODIUM/SENNA 50/8.6MG TAB PO SCH (22:06)
[2017-03-08 23:02] VITALS: BP 119/69; PULSE 93; TEMP 36.8; O2SAT 99
[2017-03-09] MEDS: POLYETHYLENE (MIRALAX) 17 GM PACK PO SCH
[2017-03-09] MEDS ORDERED: NURSING VERBAL MED ORDER ONE (00:15)
[2017-03-09] MEDS: OXYCODONE HCL IR 5 MG TAB (IMMEDIATE RELEASE) PO PRN ×2 (06:27→10:15)
[2017-03-09 06:40] VITALS: BP 124/72; PULSE 111; TEMP 36.8; O2SAT 92
--- NOTE | 2017-03-09 08:58 | PROGRESS NOTE ---
DATE: 03/09/2017 SUBJECTIVE: She is postoperative day 4 lumbar decompression and fusion. She reports some right-sided lateral hip and groin pain. She has had bowel movements since surgery. The radicular leg pain she had preoperatively, has improved. Back pain is controlled. DONOVAN drain output last shift was 55 mL. She is making steady progress in physical therapy. PHYSICAL EXAMINATION: GENERAL: She is sitting in a chair, eating breakfast. She is cheerful. VITAL SIGNS: Stable. LOWER EXTREMITIES: Neurovascularly intact. PAULA hose intact bilaterally. Calves are soft and nontender. Lumbar dressing is clean, dry and intact. ASSESSMENT: Postop day 4 lumbar decompression and fusion. PLAN: We will continue with DVT prophylaxis in the form of TEDs and SCDs. We will DC drain and dressing just prior to discharge. She has multiple social work issues and we are currently awaiting approval for discharge to [facility].
[2017-03-09] MEDS: METFORMIN HCL 500 MG TAB PO SCH (08:59)
[2017-03-09] MEDS: FLUOXETINE HCL 10 MG CAP PO SCH (08:59)
[2017-03-09] MEDS: HYDROCHLOROTHIAZIDE 25 MG TAB PO SCH (09:00)
[2017-03-09] MEDS: LOSARTAN POTASSIUM 50 MG TAB PO SCH (09:00)
[2017-03-09] MEDS: LORAZEPAM 0.5 MG TAB PO PRN (09:04)
[2017-03-09] MEDS: INSULIN ASPART 100 UNITS/ML 3 ML PEN SC SCH ×2 (09:07→13:55)
[2017-03-09] MEDS: INSULIN GLARGINE SOLOSTAR 100 UNITS/ML 3 ML PEN SC SCH (09:09)
[2017-03-09] MEDS: HYDROmorphone INJ 1 MG/ML SYR IV PRN (09:10)
--- NOTE | 2017-03-09 10:22 | Pharmacy Progress Note ---
Glycemic Control Progress Note Date of Service Mar 09, 2017. Scope Glycemic Pharmacist consulted for glycemic control to write orders per [facility] inpatient glycemic control protocol. Objective Accuchecks BSG (last 24hrs): Test 03/08/17 11:52 03/08/17 17:03 03/08/17 20:45 03/09/17 06:49 Bedside Glucose 184 mg/dl (70-90) 121 mg/dl (70-90) 156 mg/dl (70-90) 168 mg/dl (70-90) HbA1c: Test 03/06/17 06:25 Hemoglobin A1c 7.5 % (4.5-5.6) H Recent Pertinent Medications The patient is currently receiving: * Basal insulin: Lantus 32 units every 24 hours * Correctional Insulin: Novolog Correction per scale ACHS Goal Range: Low 110 mg/dL - High 140 mg/dL Correction Factor: 20 mg/dL/unit * Prandial insulin: Per carb ratio of 1 unit per 7 grams CHO consumed * Oral Agents: Metformin 1 g PO BIDM Outpatient Anti-Diabetic Meds Oral Agents Basal Insulin Bolus Insulin Assessment & Plan ASSESSMENT: * See progress note from 03/06 for more background info, in short: * Pt receiving SQ basal bolus insulin regimen for hyperglycemia secondary to baseline DM (outpatient regimen on hold), recent surgery, steroids * Patient is currently receiving an average of 56 units of insulin per day * 32 units of basal insulin * 24 units of prandial/correctional insulin * BSGs ranging 121-162 mg/dl over the past 24hrs * Changes needed to insulin regimen: * AM Fasting BSG = 168 mg/dl. This is slightly above goal range for patient based on inpatient targets and co-morbidities. Steroid hyperglycemia effects should be diminishing at this point and patient has been on home dose for 48 hours. Increase Lantus by ~15% tomorrow AM. * Post-prandial BSGs are in range with the addition of metformin. No changes warranted. * Additional notes / comments: POD#4 s/p lumbar spinal surgery. Outpatient insulin doses were stressed/increased for steroid induced hyperglycemia, now resolved. Outpatient regimen resumed and patient doing well. Only slight changes necessary at this point. PLAN FOR INPATIENT GLYCEMIC CONTROL: * Oral Agents * Metformin 1,000mg PO BIDM * Basal insulin: Increase 03/10 * Lantus 36 units SQ daily in AM * Bolus insulin * NovoLog per scale ACHS or Q6hrs while NPO * Goal Range: Low 110 mg/dL - High 140 mg/dL * Correction Factor: 20 mg/dL/unit * Nutritional / Prandial insulin per carb ratio of 1 unit per 7 grams CHO consumed * Please note that the plan above was derived based on current level of insulin resistance and hospital stress. These recommendations are appropriate for inpatient admission only. Plan of care upon discharge will need to be reassessed to avoid potential outpatient hypo/hyperglycemia. Thank you.
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
[2017-03-09 14:56] VITALS: BP 124/72; PULSE 111; TEMP 36.8; O2SAT 92
[2017-03-09 15:22] VITALS: BP 109/67; PULSE 105; TEMP 36.6; O2SAT 97
[2017-03-10] MEDS ORDERED: FLUOXETINE HCL 20 MG CAP PO SCH (09:00)
--- NOTE | 2017-03-16 10:19 | Discharge Summary ---
Orthopedic Discharge Summary Admission Date/Reason Mar 05, 2017 at 09:30 Lumbar Spinal Stenosis. Discharge Date/Disposition Mar 09, 2017 Acute care facility Diagnosis Principal Diagnosis: lumbar stenosis Procedure(s) Performed lumbar decompression/fusion Consultations psych Medication Reconciliation New Medications: Oxycodone HCl (Oxycodone HCl) 5 Mg Tab 5-10 MG PO Q4H PRN for Moderate - severe pain for 30 Days, #60 TAB Continued Medications: Clonazepam (Klonopin) 1 Mg Tab 0.5 TAB PO DAILY PRN for Anxiety, TAB Fluoxetine (Prozac) 10 Mg Cap 10 MG PO QAM, CAP Hctz/Losartan (Hyzaar 12.5MG/100MG) 1 Tab Tab 1 TAB PO QAM, 3 Refills 50/12.5MG Insulin Glargine (Lantus) 100 Unit/Ml Inj 32 UNITS SC QAM, VIAL Insulin Lispro (Human) (Humalog) 100 Unit/Ml Inj 20 UNITS SQ AC Metformin Hcl (Glucophage) 1,000 Mg Tab 1000 MG PO BID, TAB Oxycodone/Acetaminophen 5MG/325MG (Percocet 5MG/325MG) Tab 1 TABLET PO BID PRN for Pain, TAB PAIN Admission Physical Exam As per Admitting History & Physical. Discharge Instructions Please refer to the electronic Patient Visit Report (Discharge Instructions) for additional information.
== END 2017-03-09 16:05 | DRG 460 ==
LOC: C.ACU 07:16 → C.MSW 09:30 → EEVIPCON 09:30 → ENRESERV 12:23 → C.MSW 03-08 01:58
PROVIDERS: ADMIT Orthopaedic Surgery Orthopaedic Surgery of the Spine; ATTEND Orthopaedic Surgery Orthopaedic Surgery of the Spine
PROC: 0SG507Z Fusion of Sacrococcygeal Joint with Autologous Tissue Substitute, Open Approach (ICD-10-PCS; principal; 2017-03-05 09:45)
PROC: 0SG1071 Fusion of 2 or more Lumbar Vertebral Joints with Autologous Tissue Substitute, Posterior Approach, Posterior Column, Open Approach (ICD-10-PCS; principal; 2017-03-05 09:45)
PROC: 0SG30AJ Fusion of Lumbosacral Joint with Interbody Fusion Device, Posterior Approach, Anterior Column, Open Approach (ICD-10-PCS; principal; 2017-03-05 09:45)
PROC: 0SG00AJ Fusion of Lumbar Vertebral Joint with Interbody Fusion Device, Posterior Approach, Anterior Column, Open Approach (ICD-10-PCS; principal; 2017-03-05 09:45)
PROC: 0ST40ZZ Resection of Lumbosacral Disc, Open Approach (ICD-10-PCS; principal; 2017-03-05 09:45)
PROC: 0SG804Z Fusion of Left Sacroiliac Joint with Internal Fixation Device, Open Approach (ICD-10-PCS; principal; 2017-03-05 09:45)
PROC: 0ST20ZZ Resection of Lumbar Vertebral Disc, Open Approach (ICD-10-PCS; principal; 2017-03-05 09:45)
PROC: 0SG3071 Fusion of Lumbosacral Joint with Autologous Tissue Substitute, Posterior Approach, Posterior Column, Open Approach (ICD-10-PCS; principal; 2017-03-05 09:45)
PROC: 0SG704Z Fusion of Right Sacroiliac Joint with Internal Fixation Device, Open Approach (ICD-10-PCS; principal; 2017-03-05 09:45)
DX: M48.06 Spinal stenosis, lumbar region (principal); F33.9 Major depressive disorder, recurrent, unspecified; I10 Essential (primary) hypertension; E11.9 Type 2 diabetes mellitus without complications; E66.9 Obesity, unspecified; Z79.899 Other long term (current) drug therapy; Z79.4 Long term (current) use of insulin; Z68.37 Body mass index [BMI] 37.0-37.9, adult; Z91.410 Personal history of adult physical and sexual abuse; Z91.411 Personal history of adult psychological abuse

== ENCOUNTER 2017-03-16 15:22 | Emergency (ER) | payer OTHER ==
[~2017-03-16] VITALS: Ht 154.9 cm; Wt 87.1 kg
[~2017-03-16 15:22] MED LIST changes: -ATROPINE SULFATE 0.1 MG/ML 5ML SYR IV PRN; -BACITRACIN 50000 UNIT VIAL ONE; -BUPIVACAINE/EPINEPHRINE 0.25% 1:200,000 30 ML VIAL ONE; -CEFAZOLIN 2000 MG/60 ML D5W IV SCH; -EpHEDrine SULFATE INJ 50 MG/ML AMP IV PRN; -FENTANYL CITRATE INJ 50 MCG/1 ML 2 ML VIAL IV PRN; -FENTANYL CITRATE INJ 50 MCG/1 ML 2 ML VIAL ONE; -HYDROmorphone INJ 1 MG/ML SYR IV PRN; -HYDROmorphone INJ 2 MG/ML SYR/VIAL ONE; -INSULIN ASPART 100 UNITS/ML 3 ML PEN SC SCH; -KETAMINE HCL INJ 50 MG/ML 10 ML VIAL ONE; -LACTATED RINGER'S 1000ML 1,000 ML IV SCH; +LOSA100T26 PO; -LOSA100T33 PO; -MIDAZOLAM HCL 1 MG/ML 2ML VIAL ONE; -ONDANSETRON INJ 2 MG/ML 2 ML VIAL IV PRN; +RXC5 PO; -SODIUM CHLORIDE 0.9% PF 50 ML VIAL ONE
[2017-03-16 15:31] VITALS: TEMP 36.8; Ht 154.9 cm; Wt 87.1 kg
[2017-03-16] MEDS ORDERED: SODIUM CHLORIDE 0.9% 1000ML 1,000 ML IV STA (16:49)
[2017-03-16] MEDS ORDERED: MoRPHine SULFATE 4 MG/ML 1 ML CARP\\VIAL IV PRN (17:00)
[2017-03-16 17:20] LABS: BASO % 0.3 %; BASO ABS # 0.03 K/uL (0-0.2); COMPLETE YES; EOS % 1.7 %; HEMATOCRIT 34.8 % (37-47); IG% 0.6 %; LYMPH % 32.7 %; LYMPH ABS # 3.63 K/uL (1.2-3.4); MEAN CELL VOLUME 94.8 fL (80-100); MEAN CORPUSCULAR HEMOGLOBIN 31.3 pg (25-34); MEAN PLATELET VOLUME 9.6 fL (7.4-10.4); NEUT % 56.7 %; PLATELET COUNT 454 K/uL (130-400); RED BLOOD COUNT 3.67 M/uL (4.2-5.4); WHITE BLOOD COUNT 11.11 K/uL (4.8-10.8)
[2017-03-16 17:55] LABS: BUN/CREATININE RATIO 17.1 (10-20); CALCIUM 10.1 mg/dl (8.5-10.1); POTASSIUM 3.2 mmol/L (3.5-5.1)
--- NOTE | 2017-03-16 18:07 | DIAGNOSTIC IMAGING REPORT ---
CT OF THE ABDOMEN AND PELVIS WITHOUT CONTRAST, STONE PROTOCOL CLINICAL HISTORY: Back pain. Constipation. Flank pain. COMPARISON STUDY: None. TECHNIQUE: Helical axial images of the abdomen and pelvis were obtained without IV or oral contrast according to renal stone protocol. FINDINGS: No renal, ureteral or bladder calculi are identified. There is no hydronephrosis. Evaluation the remainder of the abdomen and pelvis is suboptimal on this unenhanced exam. There is no biliary ductal dilatation status post cholecystectomy. There are few calcified granulomas within the liver. A 1.1 cm lesion arising from the upper pole of the right kidney is suboptimally assessed on this unenhanced exam but measures near water attenuation and likely reflects a cyst. There is a 2 cm left adrenal adenoma. There is no evidence for a bowel obstruction. There is sigmoid diverticulosis without evidence for acute diverticulitis. There is no lymphadenopathy. Extensive postoperative findings within the lumbosacral spine are suboptimally assessed by CT. There are findings consistent with L4-L5 and L5-S1 discectomies. There are bilateral pedicle screws at the L2, L3, L4, L5 and S1 levels. The left L2 pedicle screw slightly extends through the superior endplate of L2. There is slight concavity of the superior endplate of L2. There is suspected nondisplaced fracture of the left apical and the left transverse process of L2. Evaluation is difficult given artifact from the hardware. There are bilateral iliac bolts. IMPRESSION: 1. No urinary calculi or hydronephrosis. 2. No acute process within the abdomen or pelvis on unenhanced exam. 3. Postoperative findings within the lumbosacral spine consistent with an L2-S1 bilateral pedicle screw fusion with iliac bolt placement. L4-L5 and L5-S1 discectomies. Suboptimal postoperative evaluation given CT technique. Left L2 pedicle screw slightly extends through the superior endplate with slight loss of height. Possible superior endplate and left pedicle fractures of L2. Evaluation difficult due to artifact. Electronically signed by: Guillermo Perera M.D. 03/16/2017 6:06 PM Dictated Date/Time: 03/16/2017 5:53 PM
--- NOTE | 2017-03-16 19:23 | EMERGENCY ROOM VISIT NOTE ---
History Report prepared by Jayce: Sarah Garcia Under the Supervision of: Dr. Xander Ceja D.O. First contact with patient: 16:44 Chief Complaint: BACK PAIN Stated Complaint: CONSTIPATION/ABD PAIN / [facility] Nursing Triage Summary: Patient arrives via [facility] from [facility] with complaints of back pain and abdominal pain. Patient reports having bowel movement 2 days ago "I strained to have a bowel movement and now my lower belly hurts." Patient had lumbar surgery on March 05, 2017. Incision noted to mid back to lower back. Patient has history of chronic back pain and [facility] administered pain meds around 1200 today. History of Present Illness The patient is a 66 year old female who presents to the Emergency Room with complaints of constant back pain beginning 1 week ago. The patient states that she has a history of sciatica and had her back operated on on 03/05. She reports that she had constipation after her surgery and was straining to go to the bathroom. She notes that she continued having abdominal pain after her constipation resolved and she took a laxative. The patient states that she is concerned that she may have gotten a hernia while she was straining. She complains of abdominal pain and foot cramping. She denies any current constipation. The patient notes a history of diabetes. Source of History: patient Onset: 1 week ago Position: back (lower) Timing: constant Modifying Factors (Worsening): other (straining) Associated Symptoms: + abdominal pain Note: Pt complains of cramping. She denies any current constipation. Review of Systems See HPI for pertinent positives & negatives. A total of 10 systems reviewed and were otherwise negative. Past Medical & Surgical Medical Problems: (1) Lumbar stenosis with neurogenic claudication (2) Major depressive disorder, recurrent, unspecified Family History No pertinent family history stated. Social History Smoking Status: Never Smoker Marital Status: single Occupation Status: retired Current/Historical Medications Scheduled Fluoxetine (Prozac), 10 MG PO QAM Hctz/Losartan (Hyzaar 12.5MG/100MG), 1 TAB PO QAM Insulin Glargine (Lantus), 32 UNITS SC QAM Insulin Lispro (Human) (Humalog), 20 UNITS SQ AC Metformin Hcl (Glucophage), 1,000 MG PO BID Scheduled PRN Clonazepam (Klonopin), 0.5 TAB PO DAILY PRN for Anxiety Oxycodone HCl (Oxycodone HCl), 5-10 MG PO Q4H PRN for Moderate - severe pain Oxycodone/Acetaminophen 5MG/325MG (Percocet 5MG/325MG), 1 TABLET PO BID PRN for Pain Allergies Coded Allergies: No Known Allergies (Unverified , 03/05/17) Physical Exam Vital Signs Date Time Temp Pulse Resp B/P (MAP) Pulse Ox O2 Delivery O2 Flow Rate FiO2 03/16/17 18:56 75 03/16/17 18:15 82 18 125/61 99 Room Air 03/16/17 17:23 78 18 99/54 96 Room Air 03/16/17 17:10 90 18 105/35 99 Room Air 03/16/17 15:32 86 03/16/17 15:31 36.8 90 18 112/55 97 Room Air Physical Exam CONSTITUTIONAL/VITAL SIGNS: Reviewed / noted above. GENERAL: Non-toxic in appearance. INTEGUMENTARY: Warm, dry, and [place]. HEAD: Normocephalic. EYES: without scleral icterus or trauma. ENT/OROPHARYNX: clear and moist. LYMPHADENOPATHY/NECK: Is supple without lymphadenopathy or meningismus. RESPIRATORY: Lungs clear and equal. CARDIOVASCULAR: Regular rate and rhythm. GI/ABDOMEN: Soft, mild tenderness in the left abdomen. No organomegaly or pulsatile mass. No rebound or guarding. Normal bowel sounds. EXTREMITIES: Warm and well perfused. BACK: Surgery site is well healed without any evidence of infection. NEUROLOGICAL: Intact without focal deficits. PSYCHIATRIC: normal affect. MUSCULOSKELETAL: Normally developed with good muscle tone. Medical Decision & Procedures ER Provider Diagnostic Interpretation: CT results as stated below per my review and radiologist interpretation: CT OF THE ABDOMEN AND PELVIS WITHOUT CONTRAST, STONE PROTOCOL FINDINGS: No renal, ureteral or bladder calculi are identified. There is no hydronephrosis. Evaluation the remainder of the abdomen and pelvis is suboptimal on this unenhanced exam. There is no biliary ductal dilatation status post cholecystectomy. There are few calcified granulomas within the liver. A 1.1 cm lesion arising from the upper pole of the right kidney is suboptimally assessed on this unenhanced exam but measures near water attenuation and likely reflects a cyst. There is a 2 cm left adrenal adenoma. There is no evidence for a bowel obstruction. There is sigmoid diverticulosis without evidence for acute diverticulitis. There is no lymphadenopathy. Extensive postoperative findings within the lumbosacral spine are suboptimally assessed by CT. There are findings consistent with L4-L5 and L5-S1 discectomies. There are bilateral pedicle screws at the L2, L3, L4, L5 and S1 levels. The left L2 pedicle screw slightly extends through the superior endplate of L2. There is slight concavity of the superior endplate of L2. There is suspected nondisplaced fracture of the left apical and the left transverse process of L2. Evaluation is difficult given artifact from the hardware. There are bilateral iliac bolts. IMPRESSION: 1. No urinary calculi or hydronephrosis. 2. No acute process within the abdomen or pelvis on unenhanced exam. 3. Postoperative findings within the lumbosacral spine consistent with an L2-S1 bilateral pedicle screw fusion with iliac bolt placement. L4-L5 and L5-S1 discectomies. Suboptimal postoperative evaluation given CT technique. Left L2 pedicle screw slightly extends through the superior endplate with slight loss of height. Possible superior endplate and left pedicle fractures of L2. Evaluation difficult due to artifact. Electronically signed by: Guillermo Perera M.D. 03/16/2017 6:06 PM Dictated Date/Time: 03/16/2017 5:53 PM Laboratory Results 03/16/17 17:10 Red Blood Count 3.67, Mean Corpuscular Volume 94.8, Mean Corpuscular Hemoglobin 31.3, Mean Corpuscular Hemoglobin Concent 33.0, Mean Platelet Volume 9.6, Neutrophils (%) (Auto) 56.7, Lymphocytes (%) (Auto) 32.7, Monocytes (%) (Auto) 8.0, Eosinophils (%) (Auto) 1.7, Basophils (%) (Auto) 0.3, Neutrophils # (Auto) 6.30, Lymphocytes # (Auto) 3.63, Monocytes # (Auto) 0.89, Eosinophils # (Auto) 0.19, Basophils # (Auto) 0.03 03/16/17 17:10 Test 03/16/17 17:10 03/16/17 18:02 White Blood Count 11.11 K/uL (4.8-10.8) Red Blood Count 3.67 M/uL (4.2-5.4) Hemoglobin 11.5 g/dL (12.0-16.0) Hematocrit 34.8 % (37-47) Mean Corpuscular Volume 94.8 fL (80-100) Mean Corpuscular Hemoglobin 31.3 pg (25-34) Mean Corpuscular Hemoglobin Concent 33.0 g/dl (32-36) Platelet Count 454 K/uL (130-400) Mean Platelet Volume 9.6 fL (7.4-10.4) Neutrophils (%) (Auto) 56.7 % Lymphocytes (%) (Auto) 32.7 % Monocytes (%) (Auto) 8.0 % Eosinophils (%) (Auto) 1.7 % Basophils (%) (Auto) 0.3 % Neutrophils # (Auto) 6.30 K/uL (1.4-6.5) Lymphocytes # (Auto) 3.63 K/uL (1.2-3.4) Monocytes # (Auto) 0.89 K/uL (0.11-0.59) Eosinophils # (Auto) 0.19 K/uL (0-0.5) Basophils # (Auto) 0.03 K/uL (0-0.2) RDW Standard Deviation 44.9 fL (36.4-46.3) RDW Coefficient of Variation 13.2 % (11.5-14.5) Immature Granulocyte % (Auto) 0.6 % Immature Granulocyte # (Auto) 0.07 K/uL (0.00-0.02) Anion Gap 11.0 mmol/L (3-11) Est Creatinine Clear Calc Drug Dose 55.5 ml/min Estimated GFR () 68.0 Estimated GFR (Non- 58.7 BUN/Creatinine Ratio 17.1 (10-20) Calcium Level 10.1 mg/dl (8.5-10.1) Bedside Glucose 117 mg/dl (70-90) Laboratory results as stated above per my review. Medications Administered Medications (Trade) Dose Ordered Sig/Ray Route Start Time Stop Time Status Last Admin Dose Admin Sodium Chloride 1,000 ml @ 999 mls/hr Q1H1M STAT IV 03/16/17 16:49 03/16/17 17:49 DC 03/16/17 16:49 999 MLS/HR Morphine Sulfate (MoRPHine SULFATE INJ) 4 mg Q15M PRN IV 03/16/17 17:00 03/30/17 16:59 03/16/17 17:21 4 MG ED Course 1644: Previous medical records were reviewed. The patient was evaluated in room C12B. A complete history and physical examination was performed. 164: Sodium Chloride 1000 ml @ 999 mls/hr IV. 170: Morphine Sulfate 4mg PRN IV pain. 1920: I reevaluated and updated the patient. 1931: On reevaluation, the patient is doing well. I discussed the results and findings with the patient. She verbalized agreement of the treatment plan. The patient was discharged home. Medical Decision Differential considered: pancreatitis, hepatitis, or acute cholecystitis, AAA, UTI, pyelonephritis, kidney stones, appendicitis, diverticulitis, shingles, bowel obstruction mesenteric ischemia, intussusception,hernia, ovarian torsion, ruptured ovarian cyst,ectopic , . Medication Reconciliation: I attest that I have personally reviewed the patient' s current medication list. Blood pressure Screening: Patient was found to have normal blood pressure on screening and does not require follow-up. This is a 66-year-old female who presents to the ED with a chief complaint of some left-sided abdominal pain. She also reports some right-sided abdominal pain previously. The patient states that she was constipated after back surgery on March 05. She was straining to have a bowel movement and was concerned that she may have caused a hernia. Today she is complaining of some left lower quadrant abdominal discomfort. She had had some right-sided abdominal pain radiating to her groin previously. She is mild tenderness in the left side. The exam was otherwise unremarkable. Her vital signs are normal. CBC is unremarkable, poor by mouth is unremarkable, CT scan of the abdomen and pelvis did not show any acute process. The patient has no abnormalities with regards to the recent lumbar surgery but these are not related to the patient's abdominal discomfort. There is no evidence of hernia or other acute process. The patient is felt to be stable for discharge per she was treated with some IV morphine during her stay. Impression Primary Impression: Abdominal pain, LLQ Scribe Attestation The scribe's documentation has been prepared under my direction and personally reviewed by me in its entirety. I confirm that the note above accurately reflects all work, treatment, procedures, and medical decision making performed by me. Departure Information Dispostion Home / Self-Care Referrals Sumi. Rivas PA-C (PCP) Forms HOME CARE DOCUMENTATION FORM, IMPORTANT VISIT INFORMATION Patient Instructions My [facility] Additional Instructions Follow-up with your doctor for further care and evaluation in 1-7 days. Return to the emergency department for worsening or new symptoms or any concerns. You have been examined and treated today on an emergency basis only. This is not a substitute for, or an effort to provide, complete comprehensive medical care. It is impossible to recognize and treat all injuries or illnesses in a single emergency department visit. It is therefore important that you follow up closely with your doctor. Call as soon as possible for an appointment.
[2017-03-16 19:38] VITALS: BP 120/67; PULSE 80; O2SAT 99
== END 2017-03-16 19:38 | disposition home or self-care (01) ==
LOC: EDBD 15:22 → C.EDC 15:23
DX: R10.32 Left lower quadrant pain (principal); E11.9 Type 2 diabetes mellitus without complications; F33.9 Major depressive disorder, recurrent, unspecified; Z98.890 Other specified postprocedural states; Z79.4 Long term (current) use of insulin; Z79.84 Long term (current) use of oral hypoglycemic drugs; Z79.899 Other long term (current) drug therapy